=== PATIENT | female | born 1970 | race Caucasian/White ===

== ENCOUNTER 2017-11-02 12:22 | Observation (INO) ==
--- NOTE | 2017-11-02 13:03 | Emergency Department Note ---
Disposition Clinical Impression: Chest pain Qualifiers: Chest pain type: unspecified Qualified Code(s): R07.9 - Chest pain, unspecified Disposition: Admitted As Inpatient Condition: Good Referrals: Narinder Bustamante DO [Primary Care Provider] - Forms: ED Satisfaction Letter Time of Disposition: 15:26 Chest Pain HPI - General Chief Complaint: ED Chest Pain Stated Complaint: Having Chest Pains Time Seen by Provider: 11/02/17 12:35 Source: patient Limitations: no limitations Vital Signs Reviewed: Yes Nursing Notes Reviewed: Yes - History of Present Illness HPI Narrative: Patient is a 47-year-old female that presents to the emergency department for left-sided chest pain. She states that the pain radiates into her left arm and her left arm is tingly and numb. She also states that it radiates into her jaw. States that she is having right jaw pain. She states that she has really tired. She states that she has never had anything like this before. States that nothing seems to make it any better or worse. She does state that she had a flight that lasted a couple of hours a couple of days ago. Patient denies any history of clots. She does have chest pains located on the left and middle part of her chest and describes it as achy. She rates the pain currently as a 5 out of 10 but at worst at an 8 out of 10. Patient denies any nausea or shortness of breath. She does state that she feels hot when she has the chest pain. Severity scale (1-10): 5 - Related Data Home Medications Medication Instructions Recorded Confirmed Pantoprazole Sodium 40 mg PO DAILY 11/02/17 11/02/17 Allergies Allergy/AdvReac Type Severity Reaction Status Date / Time No Known Allergies Allergy Verified 03/13/17 14:31 All systems ED: reviewed and negative except as stated. Cardiovascular: Reports: chest pain Chest Pain PMH - Past Medical History Medical history: Reports: no medical history - Social History Smoking Status: Never smoker Alcohol use: Reports: none Physical Exam - General Limitations: no limitations General appearance: alert, in no apparent distress - Head Head exam: atraumatic, normocephalic - Eye Eye exam: Present: normal appearance, EOMI - Neck Neck exam: Present: normal inspection, full ROM, trachea midline - Respiratory Respiratory exam: Present: normal lung sounds bilaterally. Absent: respiratory distress, wheezes - Cardiovascular Cardiovascular exam: Present: regular rate, normal rhythm, normal heart sounds, +S1, +S2 - Abdominal Exam Abdominal exam: Present: soft, Non-Tender, normal bowel sounds - Neurological Exam Neurological exam: Present: alert, oriented X3 - Psychiatric Psychiatric exam: Present: normal affect, normal mood - Skin Skin exam: Present: warm, dry, intact Course Vital Signs Temperature 99.0 F 11/02/17 12:23 Pulse Rate 69 11/02/17 12:23 Respiratory Rate 18 11/02/17 12:23 Blood Pressure 159/81 11/02/17 12:23 O2 Sat by Pulse Oximetry 99 11/02/17 12:23 Temperature 99.0 F 11/02/17 12:23 Pulse Rate 63 11/02/17 14:52 Respiratory Rate 12 11/02/17 14:52 Blood Pressure 124/64 11/02/17 14:52 O2 Sat by Pulse Oximetry 100 11/02/17 14:52 Oxygen Delivery Oxygen Delivery Room Air Chest Pain - MDM Narrative Medical decision making narrative: Due to the patient presented with chest pain we will obtain a cardiac workup. The patient had an elevated d-dimer so a CTA of the chest will be ordered. CT of the chest was negative for pulmonary embolus. The patient's chest pain is relieved with nitroglycerin. It has returned and we will give the patient nitro paste. The patient will need to be admitted to the hospital for further evaluation and management. Other than the elevated d-dimer the patients laboratory testing was unremarkable. I called and spoke to the hospitalist and they have except for the patient to their service. The patient will be admitted to the hospital at this time for further evaluation management. - Lab Data Lab results reviewed: Yes I reviewed the patient's lab results. Result diagrams: 11/02/17 13:11/02/17 13: Lab Results 11/02/17 11/02/17 11/02/17 Range/Units 13: 13: 13:01 WBC 6.2 (4.3-11.1) K/mcL RBC 4.75 (3.82-4.97) M/mcL Hgb 14.3 (11.5-15.4) g/dL Hct 41.9 (35.3-44.9) % MCV 88.2 (83.0-100.0) fL MCH 30.1 (28.0-33.3) pg MCHC 34.1 (31.6-35.5) g/dL RDW 12.8 (11.5-14.5) % Plt Count 335 (140-400) K/mcL MPV 10.2 (9.4-12.4) fL Immature Gran % 0.3 (0-4) % Seg Neutrophils % 62.0 % Lymphocytes % 26.5 % Monocytes % 8.4 % Eosinophils % 1.8 % Basophils % 1.0 % Neutrophils # 3.8 (1.6-8.9) K/mcL Lymphocytes # 1.6 (0.6-4.6) K/mcL Monocytes # 0.5 (0.0-1.3) K/mcL Eosinophils # 0.1 (0.0-0.6) K/mcL Basophils # 0.1 (0.0-0.2) K/mcL D-Dimer (0-500) ng/mLFEU Sodium 140 (136-145) mEq/L Potassium 4.2 (3.5-5.1) mEq/L Chloride 106 (98-107) mEq/L Carbon Dioxide 28 (23-29) mEq/L BUN 13 (6-20) mg/dL Creatinine 0.65 (0.60-1.20) mg/dL Est GFR ( Amer) > 60 (> 60) Est GFR (Non-Af Amer) > 60 (> 60) BUN/Creatinine Ratio 20 (6-26) Glucose 110 H (70-105) mg/dL Calculated Osmolality 291 (280-300) Calcium 10.0 (8.6-10.3) mg/dL Troponin I < 0.03 (< 0.04) ng/mL 11/02/17 Range/Units 13:01 WBC (4.3-11.1) K/mcL RBC (3.82-4.97) M/mcL Hgb (11.5-15.4) g/dL Hct (35.3-44.9) % MCV (83.0-100.0) fL MCH (28.0-33.3) pg MCHC (31.6-35.5) g/dL RDW (11.5-14.5) % Plt Count (140-400) K/mcL MPV (9.4-12.4) fL Immature Gran % (0-4) % Seg Neutrophils % % Lymphocytes % % Monocytes % % Eosinophils % % Basophils % % Neutrophils # (1.6-8.9) K/mcL Lymphocytes # (0.6-4.6) K/mcL Monocytes # (0.0-1.3) K/mcL Eosinophils # (0.0-0.6) K/mcL Basophils # (0.0-0.2) K/mcL D-Dimer 947 H (0-500) ng/mLFEU Sodium (136-145) mEq/L Potassium (3.5-5.1) mEq/L Chloride (98-107) mEq/L Carbon Dioxide (23-29) mEq/L BUN (6-20) mg/dL Creatinine (0.60-1.20) mg/dL Est GFR ( Amer) (> 60) Est GFR (Non-Af Amer) (> 60) BUN/Creatinine Ratio (6-26) Glucose (70-105) mg/dL Calculated Osmolality (280-300) Calcium (8.6-10.3) mg/dL Troponin I (< 0.04) ng/mL - Radiology Data Radiology results reviewed: Yes I reviewed the patient's radiology results. Chest X-Ray 11/02/17 12:52 IMPRESSION: No acute process. D/ / Myrtle Hernandez MD / Myrtle Hernandez MD Interpreting Provider: Myrtle Hernandez MD Chest CTA 11/02/17 13:51 IMPRESSION: 1. No evidence of a pulmonary embolism or parenchymal lung infiltrate. 2. Benign left adrenal adenoma, stable dating back to 2009. D/ / 11/02/2017 14:39:23 Max Tyler MD / [facility] Interpreting Provider: Max Tyler MD - EKG Data EKG attestation: Yes I reviewed and interpreted this EKG. EKG results narrative: Patient's EKG shows a sinus rhythm at a rate of 61 bpm, KS interval of 138, QRS duration of 86, QTC of 387 there is no STEMI noted on this EKG. There is no previous EKG for comparison.
[2017-11-02 13:10] LABS: Basophils # 0.1 K/mcL (0.0-0.2); Eosinophils # 0.1 K/mcL (0.0-0.6); Eosinophils % 1.8 %; Hematocrit 41.9 % (35.3-44.9); Hemoglobin 14.3 g/dL (11.5-15.4); Immature Granulocytes % 0.3 % (0-4); Lymphocytes # 1.6 K/mcL (0.6-4.6); Lymphocytes % 26.5 %; Mean Corpuscular HGB Conc 34.1 g/dL (31.6-35.5); Mean Corpuscular Hemoglobin 30.1 pg (28.0-33.3); Mean Corpuscular Volume 88.2 fL (83.0-100.0); Mean Platelet Volume 10.2 fL (9.4-12.4); Monocytes # 0.5 K/mcL (0.0-1.3); Monocytes % 8.4 %; Neutrophils # 3.8 K/mcL (1.6-8.9); Platelet Count 335 K/mcL (140-400); Red Blood Count 4.75 M/mcL (3.82-4.97); Red Cell Distribution Width 12.8 % (11.5-14.5)
[2017-11-02] MEDS ORDERED: Aspirin 325 MG TABLET PO ONE (13:12)
--- NOTE | 2017-11-02 13:14 | Emergency Department Note ---
START Narrative - START START: I examined this patient and my medical decision-making was reviewed with the Resident Physician. I agree with the documented findings, disposition and treatment plan as described except to the extent set forth below. 47 showed female presents to ER with chest pain. Located to the left anterior chest wall. Radiates into left arm and left neck. Has some left arm numbness. No shortness of breath. No vomiting. No diaphoresis. No cardiac history. Recent travel to [place] and back. The back on Thursday. Started having pain on Thursday. Her perk score is 0. I will add on a d-dimer based on her travel history none the less. She will be given nitroglycerin and aspirin. Her EKG was unremarkable. No other risk factors other than slightly overweight.
[2017-11-02 13:23] LABS: BUN/Creatinine Ratio 20 (6-26); Blood Urea Nitrogen 13 mg/dL (6-20); Carbon Dioxide 28 mEq/L (23-29); Chloride 106 mEq/L (98-107); Glucose 110 mg/dL (70-105); Osmolality,Calculated 291 (280-300); Potassium 4.2 mEq/L (3.5-5.1); Sodium 140 mEq/L (136-145); eGFR For African Americans > 60 (> 60); eGFR For Non-African Americans > 60 (> 60)
[2017-11-02] MEDS: Nitroglycerin 0.4 MG TAB.SUBL SL PRN (13:50)
[2017-11-02] MEDS ORDERED: Nitroglycerin 1 INCH/GM PACKET TP ONE (14:53)
[2017-11-02] MEDS ORDERED: *HR* Morphine 2 MG/ML SYRINGE IVP PRN (17:07)
[2017-11-02] MEDS ORDERED: Naloxone 0.4 MG/ML INJ IVP PRN (17:07)
[2017-11-02] MEDS ORDERED: Nitroglycerin 0.4 MG TAB.SUBL SL PRN (17:14)
--- NOTE | 2017-11-02 17:18 | Internal Med History&Physical ---
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 Admitted with worsening chest pain. ARISTIDES score 1. Plan: Admit as observation. Aspirin 81/metoprolol 12.5 once/Lipitor 20. Sublingual nitroglycerin as needed. Cycle troponin Echocardiogram Resume home medication 3 troponins normal/echocardiogram within normal limits: Consider stress test Of note: I have examined this patient in emergency department room #11. Patient's was at bedside. Plan of care explained to patient and her . All questions answered Qualifiers: Chest pain type: unspecified Qualified Code(s): R07.9 - Chest pain, unspecified (2) Morbid obesity Current visit: Yes Status: Acute Patient might get benefit from outpatient bariatric surgery evaluation (3) DVT prophylaxis Current visit: Yes Status: Acute SCD Medical decision making: This patient has a moderate to severe risk of worsening Internal Medicine - H&P: HPI Chief complaint: chest pain Admitted From: Emergency Dept Plans for Post Hospital Care: Home History of present illness: PCP: Dr Megha Delarosa PMH: GERD, morbid obesity History of present medical illness: Patient has ongoing chest pain for more than 2 weeks. Noted that in past 72 hours the pain was getting progressively worse. In last 24 hours patient noted that the pain was radiating to arm and also was radiating to the jaw. This was very scary for patient and that was reason she decided come to the emergency room for further evaluation. Patient claims that the pain is precordial in nature, radiating, worsening with movement and relieved by rest. Patient denies shortness of breath, nausea, vomiting, dizziness, abdominal pain, diarrhea and dysuria. Workup in the emergency room: Patient was evaluated in the emergency room. Basic labs were drawn. CBC was within normal limits. First troponin negative. Her d-dimer was elevated. CT chest: Negative for pulmonary embolism Reason for admission: Chest pain to rule out ACS. Family history: Noncontributory Past Med Surg Social Fam HX - Past Medical History Medical history: no medical history Psychiatric history: no psych history - Past Surgical History Surgical History: , cholecystectomy - Social History Smoking Status: Never smoker Smokeless Tobacco Status: No Alcohol use: none Drug use: none - Family History Father Living Status: Hx Family Cancer: Yes Internal Medicine - H&P: Meds Pantoprazole Sodium 40 mg PO DAILY 11/02/17 [History] 3 Allergy/AdvReac Type Severity Reaction Status Date / Time No Known Allergies Allergy Verified 03/13/17 14:31 All Systems PM: A 10-system review of systems was performed and is negative for pertinent findings except as documented above in the HPI. - Constitutional Constitutional: no chills, no fever(s), no night sweats - EENT Eyes: no change in vision, no discharge, no pain, no photophobia Ears: no ear discharge, no ear pain, no tinnitus Nose, mouth and throat: no dysphagia, no nasal discharge, no neck pain, no sore throat - Cardiovascular Cardiovascular ROS IM: chest pain, diaphoresis, no dyspnea, no lightheadedness, no palpitations, no syncope - Respiratory Respiratory: no cough, no dyspnea, no wheezing, no excessive phlegm production - Gastrointestinal Gastrointestinal: no abdominal pain, no diarrhea, no hematemesis, no hematochezia, no melena, no nausea, no vomiting - Genitourinary Genitourinary: no change in urinary stream, no dysuria, no flank pain, no hematuria - Musculoskeletal Musculoskeletal ROS IM: no numbness, no tingling - Integumentary Integumentary IM: no rash, no unusual bruising - Neurological Neurological ROS: no confusion, no convulsions, no focal weakness, no numbness, no tingling, no tremor(s) - Hematologic/Lymphatic Hematologic/Lymphatic: no easy bruising - Constitutional Vitals: Temp Pulse Resp BP Pulse Ox 98.2 F 59 16 103/65 95 11/02/17 16:55 11/02/17 16:55 11/02/17 16:55 11/02/17 16:55 11/02/17 16:55 General appearance: Present: A&O X 3, pleasant, no acute distress, answers questions appropriately - Head Head exam: Present: atraumatic, normocephalic - Eye Eye exam: Present: PERRL, conjuntiva pink, sclera anicteric Pupils: Present: PERRL - Neck Neck exam general surgery: Present: supple, trachea midline. Absent: lymphadenopathy - Respiratory Respiratory exam: Present: CTAB. Absent: accessory muscle use, rales, rhonchi, wheezes - Cardiovascular Cardiovascular exam: Present: RRR, +S1, +S2. Absent: diastolic murmur, gallop, rubs, systolic murmur - GI/Abdominal GI/Abdominal exam: Present: normal bowel sounds, soft, no peritoneal signs. Absent: distended, tenderness - Extremities Exam Extremities exam: Present: warm, radial pulses palpable and symmetrical. Absent : calf tenderness, cyanotic, pedal edema - Neurological Exam Neurological exam: Present: CN II-XII intact, oriented X3, no focal deficits. Absent: pronater drift, facial droop, speech deficit - Skin Skin exam: Present: dry, intact Internal Med - H&P Results - Labs CBC & Chem 7: 11/02/17 13:01 11/02/17 13:01
[2017-11-03 01:13] LABS: Basophils # 0.1 K/mcL (0.0-0.2); Basophils % 1.1 %; Eosinophils # 0.2 K/mcL (0.0-0.6); Eosinophils % 2.5 %; Hematocrit 37.2 % (35.3-44.9); Immature Granulocytes % 0.5 % (0-4); Lymphocytes % 31.6 %; Mean Corpuscular HGB Conc 33.9 g/dL (31.6-35.5); Mean Corpuscular Hemoglobin 30.1 pg (28.0-33.3); Mean Corpuscular Volume 88.8 fL (83.0-100.0); Mean Platelet Volume 10.5 fL (9.4-12.4); Monocytes # 0.7 K/mcL (0.0-1.3); Monocytes % 10.9 %; Neutrophils # 3.4 K/mcL (1.6-8.9); Platelet Count 358 K/mcL (140-400); Red Blood Count 4.19 M/mcL (3.82-4.97); Red Cell Distribution Width 12.8 % (11.5-14.5); Segmented Neutrophils % 53.4 %
[2017-11-03 01:23] LABS: Hemoglobin 12.6 g/dL (11.5-15.4)
[2017-11-03 01:29] LABS: INR 1.1; Prothrombin Time 12.4 Seconds (9.4-12.1)
[2017-11-03 01:31] LABS: Alanine Aminotransferase 21 Units/L (7-52); Albumin 4.1 g/dL (3.5-5.7); Albumin/Globulin Ratio 1.6 (1.1-2.2); Alkaline Phosphatase 64 Units/L (34-104); Aspartate Amino Transferase 20 Units/L (13-39); BUN/Creatinine Ratio 19 (6-26); Bilirubin,Total 0.4 mg/dL (0.3-1.0); Blood Urea Nitrogen 13 mg/dL (6-20); Calcium 9.4 mg/dL (8.6-10.3); Carbon Dioxide 28 mEq/L (23-29); Chloride 105 mEq/L (98-107); Chol/HDL Ratio 3.5 (0-4.9); Cholesterol 161 mg/dL (< 200); Globulin 2.6 g/dL (2.4-3.5); Glucose 123 mg/dL (70-105); HDL Cholesterol 46 mg/dL (40-59); LDL Cholesterol,Calculated 91 mg/dL (0-99); Osmolality,Calculated 289 (280-300); Phosphorous 4.5 mg/dL (2.7-4.5); Potassium 3.8 mEq/L (3.5-5.1); Sodium 139 mEq/L (136-145); Total Protein 6.7 g/dL (6.4-8.9); Triglycerides 120 mg/dL (< 150); eGFR For African Americans > 60 (> 60); eGFR For Non-African Americans > 60 (> 60)
[2017-11-03 01:32] LABS: Activated Partial Thrombo Time 33.6 Seconds (26.0-36.0)
--- NOTE | 2017-11-03 07:35 | Electrocardiograph Report ---
[place] [facility] app Test Date: 2017-11-02 Pat Name: Hawa Keita Department: 104 Room: 3B66 Gender: F Building Principal: : 1970 Requested By: Jeferson Andre Order Number: [id number] Reading MD: Tanmay James DO Measurements Intervals [place] Rate: 61 P: 23 TX: 138 QRS: 0 QRSD: 86 T: 18 QT: 384 QTc: 387 Interpretive Statements SINUS RHYTHM MODERATE VOLTAGE CRITERIA FOR LVH, CONSIDER NORMAL VARIANT POSSIBLE ANTERIOR MYOCARDIAL INFARCTION, PROBABLY OLD Electronically Signed On 11-03-2017 7:33:23 EST by Tamnay James DO
[2017-11-03] MEDS: Aspirin Enteric Coated 81 MG Tablet PO SCH (09:39)
--- NOTE | 2017-11-03 12:32 | Internal Med Progress Note ---
Date of Encounter: 11/03/17 Time of Encounter: 12:20 - Assessment and plan (1) Chest pain Current Visit: Yes Status: Acute Assessment and plan: Patient admitted through the emergency department with three-day history of constant left chest pressure with intermittent sharp pain. She reports radiation to the left arm with then a tingling, hot sensation that extends in the bilateral lower extremities. She reports recent onset of increased fatigue and decreased appetite. Denies correlation with food. Pain is relieved with nitroglycerin, aggravated with movement. It is reproducible with palpation. She denies any nausea, vomiting, diaphoresis or shortness of breath. Echocardiogram completed. LVEF 55-60%, normal LV DD, mild MO. Troponins are negative. Chest CT negative for evidence of PE or parenchymal lung infiltrate also stable left adrenal adenoma. Chest x-ray is negative. EKG on admission was sinus rhythm with rate of 61. Chest X-Ray 11/02/17 12:52 IMPRESSION: No acute process. D/ / Myrtle Hernandez MD / Myrtle Hernandez MD Interpreting Provider: Myrtle Hernandez MD Chest CTA 11/02/17 13:51 IMPRESSION: 1. No evidence of a pulmonary embolism or parenchymal lung infiltrate. 2. Benign left adrenal adenoma, stable dating back to 2009. D/ / 11/02/2017 14:39:23 Max Tyler MD / [facility] Interpreting Provider: Max Tyler MD Echocardiogram 11/03/17 17:10 Impressions: LVEF 55-60%. Normal left ventricular diastolic function. Normal right ventricular structure and function. Mild pulmonic regurgitation. No pulmonary hypertension. Qualifiers: Chest pain type: unspecified Qualified Code(s): R07.9 - Chest pain, unspecified (2) GERD (gastroesophageal reflux disease) Current Visit: Yes Status: Acute Assessment and plan: Per patient history. Patient takes Protonix 40 mg by mouth daily at home. Patient reports left-sided chest pressure, denies any relation to food, however will try GI cocktail since pain could mimic GERD symptoms. Patient has been placed on omeprazole while in the hospital. Continue omeprazole. Qualifiers: Esophagitis presence: esophagitis presence not specified Qualified Code(s) : K21.9 - Gastro-esophageal reflux disease without esophagitis (3) Morbid obesity Current Visit: Yes Status: Chronic Assessment and plan: Chronic. Encourage lifestyle changes. (4) DVT prophylaxis Current Visit: Yes Status: Acute Assessment and plan: SCDs ordered. - Time Spent With Patient less than 15 minutes - Subjective Interval history: Patient was seen and assessed at bedside at 12:15. She reports 3 day history of left chest pressure with intermittent sharp pain that radiates into her left arm and turns into a tingling sensation which goes in to bilateral lower extremities. She describes the pain as a balloon in her chest that needs to pop. Onset Thursday while at rest. She reports recent increased fatigue and decreased appetite. She denies any correlation with food. Relieving factor is nitroglycerin, aggravating factor is any exertion. Chest pain is reproducible with palpation, however not with deep inspiration. She states that the pressure is constant. She denies any nausea, vomiting or diaphoresis. Patient' s only prior history is GERD. - Constitutional Vitals: Temp Pulse Resp BP Pulse Ox 98.1 F 59 16 139/76 98 11/03/17 10:14 11/03/17 10:14 11/03/17 10:14 11/03/17 10:14 11/03/17 10:14 General appearance: Present: cooperative, A&O X 3, morbidly obese, pleasant, no acute distress, answers questions appropriately. Absent: severe distress - Head Head exam: Present: atraumatic, normal inspection, normocephalic - Eye Eye exam: Present: normal appearance, conjuntiva pink, sclera anicteric - Neck Neck exam general surgery: Present: normal inspection, supple, trachea midline. Absent: lymphadenopathy - Respiratory Respiratory exam: Present: chest wall tenderness, CTAB. Absent: accessory muscle use, decreased breath sounds, prolonged expiratory phase, rales, rhonchi , wheezes - Cardiovascular Cardiovascular exam: Present: RRR, +S1, +S2. Absent: bradycardia, diastolic murmur, gallop, rubs, systolic murmur, tachycardia - GI/Abdominal GI/Abdominal exam: Present: normal bowel sounds, soft, no peritoneal signs. Absent: distended, hepatomegaly, tenderness - Extremities Exam Extremities exam: Present: normal capillary refill, normal inspection, warm, radial pulses palpable and symmetrical. Absent: calf tenderness, cyanotic, pedal edema, tenderness - Neurological Exam Neurological exam: Present: alert, oriented X3, no focal deficits. Absent: facial droop, speech deficit - Skin Skin exam: Present: dry, intact, normal color, warm. Absent: rash Internal Medicine: Result - Labs CBC & Chem 7: 11/03/17 00:55 11/03/17 00:55 Labs: Short CBC 11/03/17 Range/Units 00:55 WBC 6.3 (4.3-11.1) K/mcL Hgb 12.6 D (11.5-15.4) g/dL Hct 37.2 (35.3-44.9) % Plt Count 358 (140-400) K/mcL Neutrophils # 3.4 (1.6-8.9) K/mcL BMP 11/03/17 00:55 Sodium 139 Potassium 3.8 Chloride 105 Carbon Dioxide 28 BUN 13 Creatinine 0.67 Glucose 123 H Calcium 9.4 Cardiac Enzymes 11/02/17 11/03/17 11/03/17 Range/Units 19:10 00:55 06:43 Troponin I < 0.03 < 0.03 < 0.03 (< 0.04) ng/mL Liver Function 11/03/17 Range/Units 00:55 Total Bilirubin 0.4 (0.3-1.0) mg/dL AST 20 (13-39) Units/L ALT 21 (7-52) Units/L Alkaline Phosphatase 64 (34-104) Units/L Albumin 4.1 (3.5-5.7) g/dL - ABG Interpretation ABG results: PT/INR, D-dimer PT 12.4 Seconds (9.4-12.1) H 11/03/17 00:55 D-Dimer 947 ng/mLFEU (0-500) H 11/02/17 13:01 - Impressions Impressions Echocardiogram 11/03/17 17:10 Impressions: LVEF 55-60%. Normal left ventricular diastolic function. Normal right ventricular structure and function. Mild pulmonic regurgitation. No pulmonary hypertension. Left Ventricular Wall Motion: Rest Echo Findings All wall segments showed normal motion. Findings: Study Quality * Technically adequate exam. ECG Findings * Sinus bradycardia. Left Ventricle * LVEF 55-60%. * Normal LV chamber size, wall thickness and function. * Normal left ventricular diastolic function. Right Ventricle * Normal right ventricular structure and function. Left Atrium * Normal left atrial size. Right Atrium * Normal right atrial size. Aortic Valve * No aortic regurgitation. * Trileaflet aortic valve. * No aortic stenosis. Mitral Valve * Trace mitral regurgitation. * Normal mitral valve structure. * No mitral stenosis. Tricuspid Valve * Tricuspid valve not well visualized. * No tricuspid regurgitation. * Estimated RA pressure is 3 mmHg. Pulmonic Valve * Pulmonic valve is not well visualized. * No pulmonic stenosis. * Mild pulmonic regurgitation. Pulmonary Artery * Pulmonary artery not well visualized. Aorta * Normally sized aortic root. Pericardium * There is no pericardial effusion present. Interatrial Septum * No evidence of PFO by color Doppler. IVC * Normal IVC dimensions and inspiratory collapse. Consult Discharge Plan - Plan Referrals: Narinder Bustamante DO [Primary Care Provider] -
[2017-11-03] MEDS ORDERED: GI Cocktail 40 ML EACH PO ONE (12:39)
[2017-11-03] MEDS ORDERED: Acetaminophen 325 MG TABLET PO PRN (15:49)
[2017-11-04] MEDS: Aspirin Enteric Coated 81 MG Tablet PO SCH (09:41)
[2017-11-04] MEDS: Nitroglycerin 0.4 MG TAB.SUBL SL PRN (15:27)
--- NOTE | 2017-11-04 15:39 | Internal Med Progress Note ---
Date of Encounter: 11/04/17 Time of Encounter: 09:10 - Assessment and plan (1) Chest pain Current Visit: Yes Status: Acute Assessment and plan: Patient admitted through the emergency department with three-day history of constant left chest pressure with intermittent sharp pain. She reports radiation to the left arm with then a tingling, hot sensation that extends in the bilateral lower extremities. She reports recent onset of increased fatigue and decreased appetite. Denies correlation with food. Pain is relieved with nitroglycerin, aggravated with movement. It is reproducible with palpation. She denies any nausea, vomiting, diaphoresis or shortness of breath. Echocardiogram completed. LVEF 55-60%, normal LV DD, mild MT. Troponins are negative. Chest CT negative for evidence of PE or parenchymal lung infiltrate also stable left adrenal adenoma. Chest x-ray is negative. EKG on admission was sinus rhythm with rate of 61. Pt has completed day 1 of 2 day stress test Chest X-Ray 11/02/17 12:52 IMPRESSION: No acute process. D/ / Myrtle Hernandez MD / Myrtle Hernandez MD Interpreting Provider: Myrtle Hernandez MD Chest CTA 11/02/17 13:51 IMPRESSION: 1. No evidence of a pulmonary embolism or parenchymal lung infiltrate. 2. Benign left adrenal adenoma, stable dating back to 2009. D/ / 11/02/2017 14:39:23 Max Tyler MD / [facility] Interpreting Provider: Max Tyler MD Echocardiogram 11/03/17 17:10 Impressions: LVEF 55-60%. Normal left ventricular diastolic function. Normal right ventricular structure and function. Mild pulmonic regurgitation. No pulmonary hypertension. Qualifiers: Chest pain type: unspecified Qualified Code(s): R07.9 - Chest pain, unspecified (2) GERD (gastroesophageal reflux disease) Current Visit: Yes Status: Acute Assessment and plan: Per patient history. Patient takes Protonix 40 mg by mouth daily at home. Patient reports left-sided chest pressure, denies any relation to food. Little to no relief with GI cocktail. Patient has been placed on omeprazole while in the hospital. Continue omeprazole. Qualifiers: Esophagitis presence: esophagitis presence not specified Qualified Code(s) : K21.9 - Gastro-esophageal reflux disease without esophagitis (3) Morbid obesity Current Visit: Yes Status: Chronic Assessment and plan: Chronic. Encourage lifestyle changes. (4) DVT prophylaxis Current Visit: Yes Status: Acute Assessment and plan: SCDs ordered. - Time Spent With Patient less than 15 minutes - Subjective Interval history: Patient was seen and assessed at bedside at 0910. Patient reports intermittent chest pain prior to stress test. She has not had any since today. She reports little to no relief with GI cocktail yesterday. Mild tenderness with palpation of left anterior chest wall. She denies any headache, nausea, vomiting, diaphoresis, abdominal pain or dizziness. Patient is a 2 day stress test, she has completed day 1 today. - Constitutional Vitals: Temp Pulse Resp BP Pulse Ox 98.0 F 56 16 116/74 97 11/04/17 07:17 11/04/17 07:17 11/04/17 07:17 11/04/17 07:17 11/04/17 07:17 General appearance: Present: cooperative, A&O X 3, morbidly obese, pleasant, no acute distress, answers questions appropriately. Absent: severe distress - Head Head exam: Present: atraumatic, normal inspection, normocephalic - Eye Eye exam: Present: normal appearance, conjuntiva pink, sclera anicteric - Neck Neck exam general surgery: Present: normal inspection, supple, trachea midline. Absent: lymphadenopathy, tenderness - Respiratory Respiratory exam: Present: chest wall tenderness, CTAB. Absent: accessory muscle use, rales, respiratory distress, rhonchi, wheezes - Cardiovascular Cardiovascular exam: Present: RRR, +S1, +S2. Absent: diastolic murmur, gallop, rubs, systolic murmur - GI/Abdominal GI/Abdominal exam: Present: normal bowel sounds, soft. Absent: distended, hepatomegaly, tenderness - Extremities Exam Extremities exam: Present: normal capillary refill, warm, radial pulses palpable and symmetrical. Absent: calf tenderness, cyanotic, pedal edema, tenderness - Neurological Exam Neurological exam: Present: alert, oriented X3, no focal deficits. Absent: facial droop, speech deficit - Skin Skin exam: Present: dry, intact, normal color, warm. Absent: rash Internal Medicine: Result - Labs CBC & Chem 7: 11/03/17 00:55 11/03/17 00:55 - ABG Interpretation ABG results: PT/INR, D-dimer PT 12.4 Seconds (9.4-12.1) H 11/03/17 00:55 D-Dimer 947 ng/mLFEU (0-500) H 11/02/17 13:01 Consult Discharge Plan - Plan Referrals: Narinder Bustamante DO [Primary Care Provider] -
[2017-11-05] MEDS: Aspirin Enteric Coated 81 MG Tablet PO SCH (10:04)
[2017-11-05 15:25] VITALS: BP 135/74
[2017-11-05] MEDS ORDERED: Isosorbide MONOnitrate (24 HR) 30 MG TAB.ER.24H PO SCH (15:30)
--- NOTE | 2017-11-05 15:30 | Cardiology Consult Note ---
<Skip Iglesias - Last Filed: 11/05/17 15:36> Date of Encounter: 11/05/17 Time of Encounter: 15:00 Assessment and Plan (1) Elevated d-dimer Current Visit: Yes Status: Acute Per Cardiology: Noted to be in the 900's. CT negative for PE. (2) Chest pain Current Visit: Yes Status: Acute Per Cardiology: Atypical chest pain symptoms occurring mainly at rest. Troponins negative 4. ECG with no significant findings. Echo shows EF preserved, NSWMA. Nuclear stress test negative for ischemia. Very minimal risk factors for CAD. Has hx of GERD-- on PPI. I had lengthy discussion with patient and regarding monitoring/observing with close outpatient follow-up versus potential catheterization. Patient and agreeable to watch and monitor follow-up in outpatient setting. Will add low dose nitrate. Can consider LHC vs Cardiac CTA in outpatient setting if clinically deemed appropriate. Discussed and reviewed with Dr. Jauregui, will sign off, reconsult as needed, follow-up scheduled. Qualifiers: Chest pain type: unspecified Qualified Code(s): R07.9 - Chest pain, unspecified (3) GERD (gastroesophageal reflux disease) Current Visit: Yes Status: Chronic Per Cardiology: Hx of GERD, rec titrate PPI. Qualifiers: Esophagitis presence: esophagitis presence not specified Qualified Code(s) : K21.9 - Gastro-esophageal reflux disease without esophagitis Discussion w patient/family: The assessment and plan as outlined above was discussed with the patient and/or family members who expressed understanding and agreement. All questions were answered. Thank you for involving us in the care of your patient. Please call with any questions. History of Present Illness Consult date: 11/05/17 Requesting physician: Juany Eric Consult reason: CP Chief complaint: CP History of present illness: Ms. Keita is a 47 year old female with a relevant past mental history of obesity and GERD. Cardiology consult for chest pain relieved with nitroglycerin pills. Patient seen today with at bedside. She reports over the past few weeks increasing fatigue. She reports since this past Thursday evening worsening increase in fatigue and sleepiness. She reports Thursday evening at rest developed left-sided aching pain with pain to her left shoulder and arm and left neck and jaw region. She reports during hospital stay chest pain symptoms have been intermittent and nitroglycerin appears to relieve. She reports symptoms do not occur with exertional activities. She does report some mild dyspnea on exertion, however remains about baseline. She denies any palpitations. She denies any known history of CAD as never had heart catheterization. She has no first-degree relatives with known CAD. She has never smoked. She denies any history of hypertension, DM 2, hyperlipidemia. Currently left-sided anterior chest wall "soreness" 1-2 out of 10. Symptoms unchanged with movement, palpation, or deep inspiration. She denies any recent fever, chills, nausea, vomiting, diarrhea, cough. Reports recently out of town for work in [place]. Past Med Surg Social Fam HX - Past Medical History Attestation: Yes The following information was validated with the patient. Source: patient, obtained from family Medical history: no medical history, GERD Psychiatric history: no psych history - Past Surgical History Surgical History: , cholecystectomy - Social History Smoking Status: Never smoker Smokeless Tobacco Status: No Alcohol use: none Drug use: none - Family History Father Living Status: Hx Family Cancer: Yes Medications and Allergies Pantoprazole Sodium 40 mg PO DAILY 11/02/17 [History] 3 Allergy/AdvReac Type Severity Reaction Status Date / Time No Known Allergies Allergy Verified 03/13/17 14:31 All Systems Review: A 10-system review of systems was performed and is negative for pertinent findings except as documented above in the HPI. - Constitutional Constitutional: fatigue - Cardiovascular Cardiovascular: as per HPI, chest pain at rest - Gastrointestinal Gastrointestinal: constipation Physical Examination Vital Signs, Last 4 Hours Temp Pulse Resp BP Pulse Ox 11/05/17 15:24 98.7 F 60 16 135/74 96 General: Conversant, No Apparent Distress HEENT: Atraumatic, Normocephaly, Mucus Membranes Moist Neck: No JVD, Normal carotid pulses Cardiac: Reg Rate and Rhythm, Normal S1 and S2, No Murmur Lungs: Normal Breath Sounds, No Wheeze, Rales, Rhonchi Neuro: Alert and responsive, No focal deficits noted Abdomen: Soft, Non-Tender Skin: No rashes noted on visualized skin Musculoskeletal: No Chest Wall Tenderness Extremities: No Clubbing, No Cyanosis, No Edema, Normal Pulses Results 11/03/17 00:55 11/03/17 00:55 Laboratory Tests 11/02/17 11/02/17 11/02/17 13:01 13:01 19:10 INR D-Dimer 947 H Creatinine Est GFR (Non-Af Amer) Magnesium AST ALT Troponin I < 0.03 < 0.03 B-Natriuretic Peptide LDL Cholesterol, Calc 11/03/17 11/03/17 11/03/17 00:55 00:55 00:55 INR 1.1 D-Dimer Creatinine 0.67 Est GFR (Non-Af Amer) > 60 Magnesium 2.0 AST 20 ALT 21 Troponin I < 0.03 B-Natriuretic Peptide LDL Cholesterol, Calc 91 11/03/17 11/03/17 00:55 06:43 INR D-Dimer Creatinine Est GFR (Non-Af Amer) Magnesium AST ALT Troponin I < 0.03 B-Natriuretic Peptide 15 LDL Cholesterol, Calc ITS Impressions Chest X-Ray 11/02/17 12:52 IMPRESSION: No acute process. D/ / Myrtle Hernandez MD / Myrtle Hernandez MD Interpreting Provider: Myrtle Hernandez MD Chest CTA 11/02/17 13:51 IMPRESSION: 1. No evidence of a pulmonary embolism or parenchymal lung infiltrate. 2. Benign left adrenal adenoma, stable dating back to 2009. D/ / 11/02/2017 14:39:23 Max Tyler MD / [email or web address] Interpreting Provider: Max Tyler MD Echocardiogram 11/03/17 17:10 Impressions: LVEF 55-60%. Normal left ventricular diastolic function. Normal right ventricular structure and function. Mild pulmonic regurgitation. No pulmonary hypertension. Left Ventricular Wall Motion: Rest Echo Findings All wall segments showed normal motion. Findings: Study Quality * Technically adequate exam. ECG Findings * Sinus bradycardia. Left Ventricle * LVEF 55-60%. * Normal LV chamber size, wall thickness and function. * Normal left ventricular diastolic function. Right Ventricle * Normal right ventricular structure and function. Left Atrium * Normal left atrial size. Right Atrium * Normal right atrial size. Aortic Valve * No aortic regurgitation. * Trileaflet aortic valve. * No aortic stenosis. Mitral Valve * Trace mitral regurgitation. * Normal mitral valve structure. * No mitral stenosis. Tricuspid Valve * Tricuspid valve not well visualized. * No tricuspid regurgitation. * Estimated RA pressure is 3 mmHg. Pulmonic Valve * Pulmonic valve is not well visualized. * No pulmonic stenosis. * Mild pulmonic regurgitation. Pulmonary Artery * Pulmonary artery not well visualized. Aorta * Normally sized aortic root. Pericardium * There is no pericardial effusion present. Interatrial Septum * No evidence of PFO by color Doppler. IVC * Normal IVC dimensions and inspiratory collapse. Active Medications Acetaminophen (Tylenol) 650 mg PO Q6H PRN PRN Reason: Mild pain/headache Stop: 05/05/18 15:50 Aspirin (Aspirin Ec) 81 mg PO DAILY [facility] Stop: 05/05/18 09:01 Last Admin: 11/05/17 10:04 Dose: 81 mg Atorvastatin Calcium (Lipitor) 20 mg PO HS [facility] Stop: 05/04/18 21:01 Last Admin: 11/04/17 20:31 Dose: 20 mg Isosorbide Mononitrate (Imdur) 30 mg PO DAILY [facility] Stop: 05/07/18 15:31 Morphine Sulfate (Morphine Sulfate) 2 mg IVP Q4HR PRN PRN Reason: Severe Pain (7-10) Stop: 05/04/18 17:08 Naloxone HCl (Narcan) 0.4 mg IVP Q2MIN PRN PRN Reason: Opioid Reversal Stop: 05/04/18 17:08 Nitroglycerin (Nitroglycerin) 0.4 mg SL Q5MIN PRN PRN Reason: Chest Pain Stop: 05/04/18 13:12 Last Admin: 11/04/17 15:27 Dose: 0.4 mg Nitroglycerin (Nitroglycerin) 0.4 mg SL Q5MIN PRN PRN Reason: Chest Pain Stop: 05/04/18 17:15 Last Admin: 11/02/17 23:18 Dose: 0.4 mg Omeprazole (Prilosec) 20 mg PO 0630 [facility] Stop: 05/05/18 06:31 Last Admin: 11/05/17 05:26 Dose: Not Given - Imaging and Cardiology Stress Test: report reviewed Echo: report reviewed - EKG Interpretation EKG results cardiology: personally reviewed, normal ECG, sinus rhythm, no diagnostic ischemia Consult Discharge Plan - Plan Referrals: Dianna,Narinder D, DO [Primary Care Provider] - <[email or web address] - Last Filed: 11/05/17 16:16> Date of Encounter: 11/05/17 - Attending Attestation I have personally performed a face to face evaluation on this patient. I have reviewed and agree with the care plan with PAYING TELLER. Presented with atypical chest pain symptoms. No significant risk factors for CAD. Physical exam unremarkable. Cardiac workup has been unremarkable including ECG, troponin, stress test. Patient agreeable to medical management for now. She will follow up with Cardiology as an outpatient. Consider CTA as outpatient. Will sign off. Assessment and Plan Discussion w patient/family: The assessment and plan as outlined above was discussed with the patient and/or family members who expressed understanding and agreement. All questions were answered. Thank you for involving us in the care of your patient. Please call with any questions. History of Present Illness History of present illness: Ms. Keita is a 47 year old female All Systems Review: A 10-system review of systems was performed and is negative for pertinent findings except as documented above in the HPI. Physical Examination Vital Signs, Last 4 Hours Temp Pulse Resp BP Pulse Ox 11/05/17 15:24 98.7 F 60 16 135/74 96 Results 11/03/17 00:55 11/03/17 00:55
--- NOTE | 2017-11-05 17:18 | Discharge Summary ---
Date of Encounter: 11/05/17 Time of Encounter: 11:00 - Discharge Diagnosis (1) Chest pain Priority: Primary Status: Acute Comments: Patient admitted through the emergency department with three-day history of constant left chest pressure with intermittent sharp pain. She reports radiation to the left arm with then a tingling, hot sensation that extends in the bilateral lower extremities. She reports recent onset of increased fatigue and decreased appetite. Denies correlation with food. Pain is relieved with nitroglycerin, aggravated with movement. It is reproducible with palpation. She denies any nausea, vomiting, diaphoresis or shortness of breath. Echocardiogram completed. LVEF 55-60%, normal LV DD, mild AR. Troponins are negative. Chest CT negative for evidence of PE or parenchymal lung infiltrate also stable left adrenal adenoma. Chest x-ray is negative. EKG on admission was sinus rhythm with rate of 61. Stress test was negative for ischemia or infarct, gated EF greater than 70%. Pt has had intermittent chest pain throughout visit. She reports that she reveals received no relief from the GI cocktail that I gave her. She reports relief of chest pain with nitroglycerin. The pain is not reproducible. Cardiology was consulted and offered several recommendations. I appreciate their consultation and recommendations Patient has chosen to start Imdur 30 mg by mouth daily and follow-up in the office. I also will maximize her PPI in an attempt to ascertain if pain is from GI symptoms or is cardiac in nature. Qualifiers: Chest pain type: unspecified Qualified Code(s): R07.9 - Chest pain, unspecified (2) GERD (gastroesophageal reflux disease) Priority: Secondary Status: Chronic Comments: Patient currently takes pantoprazole 40 mg by mouth daily at home. While inpatient she has had omeprazole 20 mg without any change in condition. GI cocktail did not provide any relief. Patient will resume pantoprazole 40 mg by mouth daily at home, I will also add Pepcid 20 mg by mouth daily. Eats smaller, more frequent meals. Avoid fried, fatty, spicy foods, do not recline for 2 hours after eating. Lifestyle modifications including weight loss. Qualifiers: Esophagitis presence: esophagitis presence not specified Qualified Code(s) : K21.9 - Gastro-esophageal reflux disease without esophagitis (3) Morbid obesity Priority: Secondary Status: Chronic Comments: Chronic. Lifestyle modifications. (4) DVT prophylaxis Priority: Secondary Status: Acute Comments: Patient has been ambulatory. - Discharge Medications Prescriptions: Aspirin Enteric Coated [Aspirin EC] 81 mg PO DAILY #30 tablet. Famotidine [Pepcid] 20 mg PO DAILY #30 tablet Isosorbide MONOnitrate (24 HR) [Imdur] 30 mg PO DAILY #30 tab.er.24h Home Medications: Pantoprazole Sodium 40 mg PO DAILY 11/02/17 [History] Aspirin Enteric Coated [Aspirin EC] 81 mg PO DAILY #30 tablet. 11/05/17 [Rx] Famotidine [Pepcid] 20 mg PO DAILY #30 tablet 11/05/17 [Rx] Isosorbide MONOnitrate (24 HR) [Imdur] 30 mg PO DAILY #30 tab.er.24h 11/05/17 [ Rx] Allergies/Adverse Reactions: 3 Allergy/AdvReac Type Severity Reaction Status Date / Time No Known Allergies Allergy Verified 03/13/17 14:31 Procedures/tests Complete & Pending: Procedures Performed prior 72 hours Category Date Time Status NM charmaine perf SPECT multi [NM] Routine Exams 11/03/17 12:04 Taken EV echocardiogram Routine Y 11/03/17 17:10 Completed SP exercise nuclear stress Routine Y 11/04/17 07:15 Completed Date of admission: 11/02/17 15:37 Primary care physician: Viv Ghosh Consults: 11/05/17 14:27 Consult to Cardiology [CONS] Routine Comment: Consulting Provider: Cardiology Lupis Reason for Consult: Continued chest pain, stress negative. Trops negative Time Notified: 14:28 Call Completed: Yes Discharging clinician: Juany Eric Anticipated date of discharge: 11/05/17 - Patient Status Disposition: Home, Self-Care Condition: Good Functional capacity at discharge: independent ambulation Overall status at discharge: patient is back to baseline - Discharge Instructions Follow Up With: Narinder Butsamante DO [Primary Care Provider] - Additional Instructions: Please follow-up with your primary care provider and cardiology as scheduled. Prescriptions have been called in to your pharmacy. Please implement lifestyle modifications including weight loss, eating smaller, more frequent meals, and avoiding spicy, fatty, fried foods. Limit your caffeine intake both for your chest pain, as well as your GERD symptoms. Return to the emergency department immediately if you have any other problems or concerns. Return to you for normal activities as tolerated. - Diet and Activity Activity: increase activity as tolerated Diet: low fat, low cholesterol, other Hospital course: Ms. Keita is a 47 year old female with no significant medical history other than GERD who presented to the emergency department for chest pain. She is mildly obese, no smoking history no diabetes or hypertension. No significant risk factors other than sex. Patient's EKG was negative, troponins were negative. Stress test was negative for ischemia or infarct with a gated EF of greater than 70%. Echo within normal limits with preserved ejection fraction and no significant valvular dysfunction. Patient continued to have chest pain throughout visit and the only relieving factor was nitroglycerin sublingual. Cardiology was consult for recommendations. After lengthy discussion, patient decided to try Imdur 30 mg by mouth daily. I will also maximize her GERD medicine by adding Pepcid 20 mg by mouth daily to her pantoprazole 40 mg by mouth daily. Pt encouraged to implement lifestyle changes, follow-up with cardiology and primary care provider for continued evaluation. Her labs are stable, vitals are stable and within normal limits. Patient is appropriate for discharge. - Time Spent with Patient Total time spent providing and/or coordinating discharge services: Less than 30 minutes - Constitutional Vitals: Temp Pulse Resp BP Pulse Ox 98.7 F 60 16 135/74 96 11/05/17 15:24 11/05/17 15:24 11/05/17 15:24 11/05/17 15:24 11/05/17 15:24 General appearance: Present: cooperative, A&O X 3, morbidly obese, pleasant, no acute distress, answers questions appropriately. Absent: severe distress - Head Head exam: Present: atraumatic, normal inspection, normocephalic - Eye Eye exam: Present: normal appearance, conjuntiva pink, sclera anicteric - Neck Neck exam general surgery: Present: supple, trachea midline. Absent: lymphadenopathy, tenderness, thyromegaly - Respiratory Respiratory exam: Present: CTAB. Absent: accessory muscle use, chest wall tenderness, decreased breath sounds, prolonged expiratory phase, rales, rhonchi , wheezes - Cardiovascular Cardiovascular exam: Present: RRR, +S1, +S2. Absent: diastolic murmur, gallop, rubs, systolic murmur - GI/Abdominal GI/Abdominal exam: Present: normal bowel sounds, soft. Absent: distended, hepatomegaly, tenderness - Extremities Exam Extremities exam: Present: normal capillary refill, normal inspection, warm, radial pulses palpable and symmetrical. Absent: calf tenderness, cyanotic, pedal edema, tenderness - Neurological Exam Neurological exam: Present: alert, oriented X3, no focal deficits. Absent: facial droop, speech deficit - Skin Skin exam: Present: dry, intact, normal color, warm. Absent: rash - VTE Documentation of Mechanical Device: Intermittent pneumatic compression device
== END 2017-11-05 18:30 | disposition home or self-care (01) ==
LOC: 3BNU 12:22 → EMEROO 12:22 → 3BNU 16:04
PROVIDERS: ADMIT Internal Medicine; ATTEND Registered Nurse